=== PATIENT | male | born 1970 | race African-American/Black ===

== ENCOUNTER 2018-09-20 10:29 | Emergency (ER) | payer SELFPAY ==
[~2018-09-20] VITALS: Ht 193 cm; Wt 95.3 kg
[2018-09-20 11:33] VITALS: BP 152/111
[2018-09-20] MEDS ORDERED: CLIN300C8 PO (12:00)
--- NOTE | 2018-09-20 12:00 | PHYS DOC ---
Past Medical History Past Medical History: No Pertinent History Past Surgical History: No Surgical History Alcohol Use: Occasionally Drug Use: Marijuana Adult General Chief Complaint Chief Complaint: FACE PROBLEM HPI HPI Patient is a 47 year old [f__sex] who presents with [] Review of Systems Review of Systems Constitutional: Denies fever or chills [] Eyes: Denies change in visual acuity, redness, or eye pain [] HENT: Denies nasal congestion or sore throat [] Respiratory: Denies cough or shortness of breath [] Cardiovascular: No additional information not addressed in HPI [] GI: Denies abdominal pain, nausea, vomiting, bloody stools or diarrhea [] : Denies dysuria or hematuria [] Musculoskeletal: Denies back pain or joint pain [] Integument: Denies rash or skin lesions [] Neurologic: Denies headache, focal weakness or sensory changes [] Endocrine: Denies polyuria or polydipsia [] All other systems were reviewed and found to be within normal limits, except as documented in this note. Current Medications Current Medications Current Medications Medications (Trade) Dose Ordered Sig/Wiliam Start Time Stop Time Status Last Admin Dose Admin Clindamycin HCl (Cleocin) 450 mg 1X ONCE 09/20/18 12:15 09/20/18 12:16 Allergies Allergies Allergies Coded Allergies Type Severity Reaction Last Updated Verified No Known Drug Allergies 09/20/18 No Physical Exam Physical Exam Constitutional: Well developed, well nourished, no acute distress, non-toxic appearance. [] HENT: Normocephalic, atraumatic, bilateral external ears normal, oropharynx moist, no oral exudates, nose normal. [] Eyes: PERRLA, EOMI, conjunctiva normal, no discharge. [] Neck: Normal range of motion, no tenderness, supple, no stridor. [] Cardiovascular:Heart rate regular rhythm, no murmur [] Lungs & Thorax: Bilateral breath sounds clear to auscultation [] Abdomen: Bowel sounds normal, soft, no tenderness, no masses, no pulsatile mas ses. [] Skin: Warm, dry, no erythema, no rash. [] Back: No tenderness, no CVA tenderness. [] Extremities: No tenderness, no cyanosis, no clubbing, ROM intact, no edema. [] Neurologic: Alert and oriented X 3, normal motor function, normal sensory function, no focal deficits noted. [] Psychologic: Affect normal, judgement normal, mood normal. [] Current Patient Data Vital Signs Vital Signs Date Time Temp Pulse Resp B/P (MAP) Pulse Ox O2 Delivery O2 Flow Rate FiO2 09/20/18 11:33 98.6 70 20 152/111 (125) 99 Room Air 98.6 EKG EKG [] Radiology/Procedures Radiology/Procedures [] Course & Med Decision Making Course & Med Decision Making Pertinent Labs and Imaging studies reviewed. (See chart for details) [] Dragon Disclaimer Dragon Disclaimer This electronic medical record was generated, in whole or in part, using a voice recognition dictation system. Departure Departure Impression: Primary Impression: Nasal abscess Additional Impression: Cellulitis Disposition: HOME, SELF-CARE Condition: STABLE Referrals: NO PCP (PCP) Patient Instructions: Abscess, [id number], Cellulitis, [id number] Additional Instructions: Continue to use over the counter Triple Antibiotic therapy at least 2x daily. Refrain from soaking wound. You may shower. Clean area twice daily. Use over the counter Tylenol and Ibuprofen for pain or discomfort. Scripts Clindamycin Hcl (CLINDAMYCIN HCL) 300 Mg Capsule 1 CAP PO TID for Infection for 7 Days, #21 CAP Prov: PIYUSH BENAVIDEZ DO 09/20/18 Problem Qualifiers Additional Impression: Cellulitis Site of cellulitis: face Qualified Codes: L03.211 - Cellulitis of face PIYUSH BENAVIDEZ DO September 20, 2018 12:00
[2018-09-20] MEDS ORDERED: CLINDAMYCIN HCL 150 MG CAPSULE. PO ONE (12:15)
== END 2018-09-20 12:14 | disposition home or self-care (01) ==
LOC: ER 10:29
DX: J32.9 Chronic sinusitis, unspecified (principal); L03.211 Cellulitis of face
CPT/HCPCS: 99283